=== PATIENT | female | born 1980 | race Caucasian/White ===

== ENCOUNTER 2020-12-24 15:05 | Outpatient (REF) | payer OTHER, SELFPAY ==
--- NOTE | ~2020-12-24 | MM_ITS ---
EXAMINATION: MM DIAGNOSTIC DIGITAL BREAST TOMOSYNTHESIS, BILATERAL CLINICAL INFORMATION: Right breast pain. Yearly left screening. Status post bilateral breast implants. The lifetime risk of breast cancer based on the Alexandra Score Model is 9.1%. COMPARISON: Mammography: December 31, 2017 and studies dating back to April 25, 2010 TECHNIQUE: Digital breast tomosynthesis is performed in both the craniocaudal and mediolateral oblique views along with computer-aided detection (CAD). Synthesized 2D images are generated from the tomosynthesis. Ravin implant is placed views also performed. FINDINGS: There are scattered areas of fibroglandular density (ACR BI-RADS breast composition Category b). There are no significant masses, abnormal calcifications, or other abnormalities. Results are discussed with the patient at time of visit. MM/MM diagnostic mammo implant BI IMPRESSION: There are no significant changes from prior study. ASSESSMENT: BI-RADS 1: Negative RECOMMENDATION: Routine annual mammography screening. This patient's information was entered into a reminder system with a target due date for their next mammogram.
--- NOTE | ~2020-12-24 | US_ITS ---
EXAMINATION: US DIAGNOSTIC ULTRASOUND BREAST, RIGHT CLINICAL INFORMATION: Mastodynia. COMPARISON: Mammography of same day and studies dating back to November 04, 2009. TECHNIQUE: Ultrasound of the breast is performed with real-time marina scale imaging and color Doppler. FINDINGS: There is no focal suspicious finding. There is no solid mass, architectural abnormality, duct ectasia, or edema in the soft tissue planes. Results are discussed with the patient at time of visit. US/US breast RT limited IMPRESSION: No specific ultrasound findings to suggest malignancy. ASSESSMENT: BI-RADS 1: Negative RECOMMENDATION: Routine annual mammography screening. This patient's information was entered into a reminder system with a target due date for their next mammogram.
== END 2020-12-24 15:06 | disposition home or self-care (01) ==
LOC: HO.MAMMO 15:05
PROVIDERS: PCP Internal Medicine; Visit Provider Internal Medicine
DX: N64.4 Mastodynia (principal)
CPT/HCPCS: 76642; 77066

== ENCOUNTER 2020-12-31 13:41 | Outpatient (REF) | payer OTHER, SELFPAY ==
[2021-01-02 14:08] LABS: CT PCR NOT DETECTED (Not Detect.); NG PCR NOT DETECTED (Not Detect.)
[2021-01-02 14:52] LABS: BV Int Neg Control Negative (Negative); BV Int Pos Control Positive (Positive)
[2021-01-04 21:46] LABS: HPV mRNA E6/E7 rflx Not Detected (Not Detected)
== END 2020-12-31 13:42 | disposition home or self-care (01) ==
LOC: HO.LAB 13:41
PROVIDERS: PCP Internal Medicine; Visit Provider Advanced Practice Midwife
DX: Z01.411 Encounter for gynecological examination (general) (routine) with abnormal findings (principal); Z11.51 Encounter for screening for human papillomavirus (HPV); N89.8 Other specified noninflammatory disorders of vagina; Z20.2 Contact with and (suspected) exposure to infections with a predominantly sexual mode of transmission
CPT/HCPCS: 87480; 87491; 87510; 87591; 87624; 87660; 88142

== ENCOUNTER 2023-05-07 14:41 | Outpatient (AMB) | payer OTHER, SELFPAY ==
[2023-05-07 14:52] VITALS: BP 90/44; BMI 27.1
--- NOTE | 2023-05-07 14:52 | MHC.OFFVIS ---
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 She saw her primary care provider last week and she put in the order for her mammogram and they had a discussion about how often to do them she has contemplating not necessarily getting them done every year she talked with an oncologist at her work site who was talking about every other year screening when she is contemplating that she also has breast implants and is doing her research about where to get them removed and she is thinking about that as well. She has had cosmetic surgery both the implants and abdominal plasty she takes care of herself. She has the Mirena IU S and she has replaced it every 5 years since the of her youngest who is 16 years old she has a 16-year-old 17-year-old and a 22-year-old all boys. She is not interested in getting at this stage of her life she does not get periods anymore and that is nice to but the main issue was prevention. She has no abnormal discharge she used to be aware of ovulation before placing the Mirena so I did talk to her about returning signs of fertility to watch for but she would rather get the Mirena switched out before it expires and not take any chances. She will be going for her mammogram as scheduled and be considering how often she wants to repeat them after that. She has no worries about STIs but excepted testing prior to planning a Mirena switch out. [facility] Surgical History (Updated 05/07/23 @ 14:55 by NISREEN Maurice) History of bunionectomy of right great toe Hx of abdominoplasty H/O breast implant Social History Alcohol intake: current Alcohol intake frequency: holidays/special occasions only Patient Tobacco Use Status: Never used Tobacco Gender identity: Female Female Reproductive History Menstrual Age of Menarche: 13 Duration of menses: 6-7 days control method: progestin IUCD Total pregnancies: 3 Full term: 3 Number of Living Children: 3 Date of last pap smear: 01/03/21 (negative) Date of Mammogram: 12/24/20 Physical Exam Vital Signs: Last Vital Signs BP 90/44 L 05/07/23 14:52 BMI result Body Mass Index 27.1 Results Reviewed Results Reviewed: Name: Poornima Connolly Age/Sex: 40/F Attending: Mary Argueta CNM : 1980 Submitted by: Mary Argueta CNM Copies to: Ashleigh Madrid MD MR #: [id number] Status: DEP REF Collected: 12/31/20 Location: .LAB Received: 01/03/21 Interpretation General Category: Negative for intraepithelial lesion/malignancy. Adequacy: Endocervical component present. Interpretation: Inflammation with associated cellular changes and repair. HPV mRNA E6/E7: Not Detected This assay detects E6/E7 viral messenger RNA (mRNA) from 14 high-risk HPV types (16, 18, 31, 33, 35, 39, 45, 51, 52, 56, 58, 59, 66, 68) HPV testing performed by [facility], [place], [place]. See reference laboratory portion of the EMR for entire report. Clinical Information LMP: IUD Previous PAP test: 2015, Unknown findings Material Received ThinPrep-Cervical Copies To Mary Argueta [address] Vaughan [address] [place] [id number] Ashleigh Madrid MD [address] [place] [id number] Electronically Signed By: Pepe Doe MD 01/13/21 0306 The Pap Test is a screening procedure with the inherent possibility of both false negative and false positive results. Results should be interpreted in the context of historic and current clinical findings. Reliability of the Pap Test is enhanced by performing the test on a regular repetitive basis. 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 She saw her primary care provider last week and she put in the order for her mammogram and they had a discussion about how often to do them she has contemplating not necessarily getting them done every year she talked with an oncologist at her work site who was talking about every other year screening when she is contemplating that she also has breast implants and is doing her research about where to get them removed and she is thinking about that as well. She has had cosmetic surgery both the implants and abdominal plasty she takes care of herself. She has the Mirena IU S and she has replaced it every 5 years since the of her youngest who is 16 years old she has a 16-year-old 17-year-old and a 22-year-old all boys. She is not interested in getting at this stage of her life she does not get periods anymore and that is nice to but the main issue was prevention. She has no abnormal discharge she used to be aware of ovulation before placing the Mirena so I did talk to her about returning signs of fertility to watch for but she would rather get the Mirena switched out before it expires and not take any chances. She will be going for her mammogram as scheduled and be considering how often she wants to repeat them after that. She has no worries about STIs but excepted testing prior to planning a Mirena switch out. Coding Level of Care Code Est Pt Prev Care 40-64y(95120) Diagnoses Presence of 52 mg levonorgestrel-releasing intrauterine device (IUD) Z97.5 Cervical cancer screening Z12.4 Well woman exam with routine gynecological exam Z01.419
== END 2023-05-07 16:05 | disposition home or self-care (01) ==
PROVIDERS: PCP Internal Medicine; Visit Provider Advanced Practice Midwife
DX: Z01.419 Encounter for gynecological examination (general) (routine) without abnormal findings (principal); Z97.5 Presence of (intrauterine) contraceptive device
CPT/HCPCS: 99396

== ENCOUNTER 2023-05-07 14:41 | Outpatient (REF) | payer OTHER, SELFPAY ==
[2023-05-08 07:12] LABS: CT PCR NOT DETECTED (Not Detect.); NG PCR NOT DETECTED (Not Detect.)
[2023-05-08 11:57] LABS: BV Int Neg Control Negative (Negative); BV Int Pos Control Positive (Positive)
== END 2023-05-07 14:42 | disposition home or self-care (01) ==
LOC: HO.LNP 14:41
PROVIDERS: PCP Internal Medicine; Visit Provider Advanced Practice Midwife
DX: Z01.419 Encounter for gynecological examination (general) (routine) without abnormal findings (principal); Z20.2 Contact with and (suspected) exposure to infections with a predominantly sexual mode of transmission; Z97.5 Presence of (intrauterine) contraceptive device
CPT/HCPCS: 0353U; 87480; 87510; 87660

== ENCOUNTER 2023-06-11 13:00 | Outpatient (AMB) | payer OTHER, SELFPAY ==
--- NOTE | 2023-06-11 13:05 | MHC.OFFVIS ---
Vital Signs 06/11/23 13:13 Height 5 ft 7 in Weight 173 lb BMI 27.1 BP 100/58 L Intake Visit Reasons: Mirena Replacement Literacy Tutor Required: No Information Interpreted: non-clinical & clinical Child Protective Services Social Worker: Child Protective Services Social Worker Present (Tina) Allergies vancomycin Allergy (Mild, Verified 06/11/23 13:13) unknown Medication List - Last Reconciled 06/11/23 by Mary Argueta CNM levonorgestrel (Mirena) intrauterine Is last menstrual period known: No (no menses MIRENA) Post menopausal: No HPI HPI Mirena Replacement: Details: Patient is here to replace her Mirena she went [place] last week she is patient. This is her 3rd Mirena and they will placing her 4th 1 she has had it since the of her youngest son and likes it she does not get her period on it at all. [facility] Surgical History History of bunionectomy of right great toe Hx of abdominoplasty H/O breast implant Social History Alcohol intake: current Alcohol intake frequency: holidays/special occasions only Patient Tobacco Use Status: Never used Tobacco Gender identity: Female Female Reproductive History Menstrual Age of Menarche: 13 control method: progestin IUCD Date of last pap smear: 01/03/21 (negative) History of abnormal pap smear: No Physical Exam Vital Signs: Last Vital Signs BP 100/58 L 06/11/23 13:13 BMI result Body Mass Index 27.1 Other: Cervix pink smooth healthy appearing no abnormal discharge. Uterus small midposition nontender difficult feel through abdominal wall secondary to abdominal plasty scar tissue. Mobile and nontender. Uterus sounded to 6 and 0.25 cm. External Female Exam: normal external appearance Speculum Exam - Vagina: normal appearance of the vagina and normal vaginal discharge Speculum Exam - Cervix: normal appearance of the cervix Bimanual exam- vagina & uterus: normal bimanual exam, uterine size normal, consistency normal, uterine mobility normal, uterine shape normal and non-tender Bimanual Exam- Adnexa, other: normal adnexae, no masses and No adnexal tenderness Office Procedures IUD Insert/Removal Details Details: ---Patient is here for her IUD removal and insertion. Bimanual exam was done. Her uterus is firm, nontender, and appropriate sized, and is midposition mobile nontender (difficult to feel abdominally secondary to abdominal plasty scar tissue. . The IUD strings were grasped with ring forceps, and as patient coughed the IUD was removed easily with 1 tug. ---The cervix was swabbed with Betadine. Tenaculum was placed on the cervix slowly to minimize cramping. The uterus was sounded slowly and gently she show a measurement of 6 1/4 cm. The IUD was removed from its package, after checking identifying information and lot dates and expiration dates and and gently inserted into the os, as per the IUD insertion procedure. The strings were then trimmed to 3-4 centimetres. The tenaculum was removed and gentle pressure applied with a swab, until any bleeding subsided from the tenaculum sites. The speculum was gently removed. The patient sat up. I Reviewed what to expect, and what indications would necessitate a call. Pt to call for fever, untoward pain or cramping. I reviewed any appropriate backup method. Pt to return for recheck as scheduled. 52312-EGE Insertion 35661-GFL Removal Procedure code (CPT) selection complete Office Meds Mirena 21 mcg/24 hours (8 yrs) 52 mg intrauterine device Performing Provider: Mary Argueta CNM [facility] Administered by: NISREEN Maurice on 06/11/23 13:50 Dose Route Admin Location Dispensed Lot Number Expiration Date [facility] Car Conditioner 1 device intrauterine 1 device [id number] 09/10/25 [id number] [employer] Results AMB Test Urine AMB Test Urine Negative Last Edit by NISREEN Maurice on 06/11/23 13:51 Results Reviewed Results Reviewed: Laboratory Last Values [facility] Negative 06/11/23 13:49 Pap-20 21 next Pap due 2025 cultures negative last month, Assessment & Plan Assessment & Plan (1) Presence of 52 mg levonorgestrel-releasing intrauterine device (IUD): Code(s): Z97.5 - Presence of (intrauterine) contraceptive device Category: Social Hx (2) IUD (intrauterine device) in place: Code(s): Z97.5 - Presence of (intrauterine) contraceptive device Category: Social Hx (3) Cervical cancer screening: Comment: 12/31/20 pap= neg/neg Code(s): Z12.4 - Encounter for screening for malignant neoplasm of cervix Category: Medical (4) Encounter for removal and reinsertion of intrauterine contraceptive device (IUD): Code(s): Z30.433 - Encounter for removal and reinsertion of intrauterine contraceptive device Category: Medical Plan Smooth removal and insertion of a new Mirena IU S her procedure. Patient tolerated very well she took ibuprofen before coming. I gave her the strings so she can refresher memory of how the feel when they are new and stiff. Recommend avoiding sex for the next few days, review what would be signs of infection. We will see her in about 6 weeks and her next Pap smear will be due in 2025. Orders: Orders AMB HCG Urine Test Today Z32.02 - Encounter for test, result negative AMB IUD Insertion/Removal - Practice Supplied Today Z30.430 - Encounter for insertion of intrauterine contraceptive device Coding Level of Care Code Est Pt Level 3 (08640) Diagnoses Presence of 52 mg levonorgestrel-releasing intrauterine device (IUD) Z97.5 IUD (intrauterine device) in place Z97.5 Cervical cancer screening Z12.4 Encounter for removal and reinsertion of intrauterine contraceptive device (IUD) Z30.433 CPT Codes Details - CPT: 80044-KBH Insertion ([id number]) Details - CPT: 74275-RNA Removal ([id number])
[2023-06-11 13:13] VITALS: BP 100/58; BMI 27.1
== END 2023-06-11 13:54 | disposition home or self-care (01) ==
PROVIDERS: PCP Internal Medicine; Visit Provider Advanced Practice Midwife
DX: Z30.433 Encounter for removal and reinsertion of intrauterine contraceptive device (principal)
CPT/HCPCS: 58300; 58301

== ENCOUNTER → 2023-06-11 13:00 | Outpatient (BNVA) | payer OTHER, SELFPAY | PROVIDERS: PCP Internal Medicine; Visit Provider Advanced Practice Midwife | DX: Z30.433 Encounter for removal and reinsertion of intrauterine contraceptive device (principal) | CPT/HCPCS: 58300; 58301; J7298 ==